=== PATIENT | male | born 1970 | race Two or more races ===

== ENCOUNTER 2019-03-14 20:31 | Emergency (ER) | payer SELFPAY ==
[~2019-03-14] VITALS: Ht 167.6 cm; Wt 83.9 kg
[2019-03-14] MEDS ORDERED: HYDROCODONE/APAP 5/325MG 1 EACH TABLET PO ONE (23:30)
[2019-03-15] MEDS ORDERED: TDAP [DIPH/PERTUSSIS/TET] 0.5 ML VIAL IM ONE (00:40)
[2019-03-15] MEDS: TDAP [DIPH/PERTUSSIS/TET] 0.5 ML VIAL IM ONE ×2 (00:41→00:44)
[2019-03-15 01:17] VITALS: BP 132/84
== END 2019-03-15 01:19 | disposition home or self-care (01) ==
LOC: ER 20:40
DX: S00.83XA Contusion of other part of head, initial encounter (principal); S00.531A Contusion of lip, initial encounter; R51 Headache; F10.10 Alcohol abuse, uncomplicated; Y90.9 Presence of alcohol in blood, level not specified; Y04.8XXA Assault by other bodily force, initial encounter; Y93.89 Activity, other specified; Y92.89 Other specified places as the place of occurrence of the external cause; Y99.8 Other external cause status
CPT/HCPCS: 70450-TC; 70486-TC; 90715